=== PATIENT | female | born 1955 | race Caucasian/White ===

== ENCOUNTER 2019-09-07 08:50 | Inpatient (IN) | payer MEDICAID, MEDICARE ==
[~2019-09-07] VITALS: Ht 157.5 cm; Wt 78.9 kg
[~2019-09-07 08:50] MED LIST: AMLO5TAB4 PO; ASPI-1158 PO; LEVO50TA60 PO; LISI-604 PO; SIMV10TA2 PO
[2019-09-07] MEDS ORDERED: MORPHINE SULFATE 4 MG/ML CPJ (NOT FOR IM USE) IV STA (09:08)
[2019-09-07 09:30] LABS: CHLORIDE 104 mEq/L (98-107)
[2019-09-07 09:31] LABS: BASOPHILS % 0.3 % (0.0-2.0); EOSINOPHILS % 2.4 % (0.0-5.0); HEMATOCRIT. 36.9 % (36.0-48.0); HEMOGLOBIN. 12.8 g/dL (12.0-16.0); MEAN CORPUSCULAR HEMOGLOBIN 31.3 pg (28.0-32.0); MEAN CORPUSCULAR VOLUME 90.2 fL (81.0-99.0); MEAN PLATELET VOLUME 7.7 fl (7.4-10.4); MONOCYTES % 6.2 % (2.0-8.0); NEUTROPHILS % 69.1 % (40.0-76.0); PLATELET 273 x1000/uL (130-400); RED BLOOD CELL COUNT 4.09 mill/uL (4.2-5.4); RED CELL DISTRIBUTION WIDTH 13.2 % (11.6-14.6)
[2019-09-07] MEDS ORDERED: HYDRALAZINE 20MG/ML VIAL IV ONE (10:15)
[2019-09-07] MEDS ORDERED: GUAIFENESIN 200MG/10ML SUGAR FREE UDC PO PRN (13:00)
[2019-09-07] MEDS ORDERED: IPRATROPIUM/ALBUTEROL 0.5-3(2.5)MG/3ML NEB NEB PRN (13:00)
[2019-09-07] MEDS ORDERED: CLONIDINE 0.1MG TABLET PO PRN (13:00)
[2019-09-07] MEDS ORDERED: ACETAMINOPHEN 650MG SUPP PR PRN (13:00)
[2019-09-07] MEDS ORDERED: DIPHENHYDRAMINE 50MG/ML VIAL IV PRN (13:00)
[2019-09-07] MEDS ORDERED: DOCUSATE SODIUM 100MG CAPSULE PO PRN (13:00)
[2019-09-07] MEDS ORDERED: NA PHOS,M-B/NA PHOS,DI-BA ENEMA 118ML PR PRN (13:00)
[2019-09-07] MEDS ORDERED: ONDANSETRON HCL 4MG/2ML INJ IV PRN (13:00)
[2019-09-07] MEDS ORDERED: MAGNESIUM/ALUMINUM HYDROXIDE/SIMETHICONE 30ML UDC PO PRN (13:00)
[2019-09-07] MEDS ORDERED: LORAZEPAM 0.5MG TABLET PO PRN (13:00)
[2019-09-07] MEDS ORDERED: ACETAMINOPHEN 325MG TABLET PO PRN (13:00)
[2019-09-07] MEDS ORDERED: HYDROCODONE/ACETAMINOPHEN 5/325MG TABLET PO PRN (13:00)
[2019-09-07] MEDS ORDERED: AZITHROMYCIN 500 MG TABLET PO ONE (13:15)
[2019-09-07 13:43] LABS: CLARITY URINE CLEAR (CLEAR); COLOR URINE YELLOW (YELLOW); KETONES URINE NEGATIVE (NEGATIVE); LEUKOCYTE ESTERASE URINE 2+ (NEGATIVE); NITRITE URINE NEGATIVE (NEGATIVE); OCCULT BLOOD URINE NEGATIVE (NEGATIVE); PH URINE 7.5 (4.5-8.0); PROTEIN URINE TRACE (NEGATIVE); SPECIFIC GRAVITY URINE 1.009 (1.005-1.030); UROBILINOGEN URINE 0.2 E.U./dL (0.2-1.0)
[2019-09-07 14:01] LABS: *AMPHETAMINES SCREEN URINE NEGATIVE (NEGATIVE); *BARBITURATES SCREEN URINE NEGATIVE (NEGATIVE); *BENZODIAZEPINES SCREEN URINE NEGATIVE (NEGATIVE)
[2019-09-07 14:03] LABS: METHADONE URINE SCREEN NEGATIVE (NEGATIVE)
[2019-09-07 14:04] LABS: CANNABINOID URINE SCREEN NEGATIVE (NEGATIVE); OPIATES URINE SCREEN PRESUMTIVE POSITIVE (NEGATIVE)
[2019-09-07 14:11] LABS: *COCAINE SCREEN URINE NEGATIVE (NEGATIVE); PHENCYCLIDINE URINE SCREEN NEGATIVE (NEGATIVE)
[2019-09-07 14:13] LABS: INR 0.9; PROTHROMBIN TIME 9.7 sec (9.6-11.0)
[2019-09-07 14:45] LABS: BASOPHILS % 0.3 % (0.0-2.0); EOSINOPHILS % 0.2 % (0.0-5.0); HEMATOCRIT. 38.4 % (36.0-48.0); HEMOGLOBIN. 13.1 g/dL (12.0-16.0); LYMPHOCYTES % 11.9 % (20.0-50.0); MEAN CORPUSCULAR HEMOGLOBIN 30.6 pg (28.0-32.0); MEAN PLATELET VOLUME 7.8 fl (7.4-10.4); MONOCYTES % 4.3 % (2.0-8.0); NEUTROPHILS % 83.3 % (40.0-76.0); PLATELET 261 x1000/uL (130-400); RED BLOOD CELL COUNT 4.27 mill/uL (4.2-5.4); RED CELL DISTRIBUTION WIDTH 13.5 % (11.6-14.6)
[2019-09-07 15:03] LABS: CREATINE KINASE 58 IU/L (26-192)
[2019-09-07 15:04] LABS: CREATINE KINASE MB FRACTION < 1.0 ng/mL (0.5-3.6)
[2019-09-07 18:33] LABS: CHLORIDE 104 mEq/L (98-107)
[2019-09-07 20:38] VITALS: BP 178/79
[2019-09-07] MEDS ORDERED: AMLODIPINE 2.5MG TABLET PO SCH (21:00)
[2019-09-07] MEDS ORDERED: ENOXAPARIN 40MG/0.4ML SYR SUBCUT SCH (21:00)
[2019-09-07] MEDS ORDERED: ATORVASTATIN CALCIUM 10MG TABLET PO SCH (21:00)
[2019-09-07] MEDS ORDERED: SIMVASTATIN 10 MG PO SCH (21:00)
[2019-09-07 22:00] VITALS: BP 188/79
[2019-09-07] MEDS: AMLODIPINE 5MG TABLET PO SCH (22:31)
[2019-09-08] VITALS: BP 148/52
[2019-09-08 00:13] LABS: CREATINE KINASE 51 IU/L (26-192)
[2019-09-08 00:14] LABS: CREATINE KINASE MB FRACTION < 1.0 ng/mL (0.5-3.6)
[2019-09-08 04:00] VITALS: BP 145/57
[2019-09-08] MEDS ORDERED: LEVOTHYROXINE SODIUM 50MCG TABLET PO SCH (07:40)
[2019-09-08 08:00] VITALS: BP 147/73
[2019-09-08] MEDS ORDERED: AZITHROMYCIN 250 MG TABLET PO SCH (09:00)
[2019-09-08] MEDS ORDERED: LOSARTAN POTASSIUM 50 MG TABLET PO SCH ×2 (09:00→21:00)
[2019-09-08] MEDS ORDERED: ASPIRIN 81MG EC TABLET PO SCH ×2 (09:00)
[2019-09-08] MEDS: AMLODIPINE 5MG TABLET PO SCH ×2 (09:20→20:30)
[2019-09-08 11:30] LABS: BASOPHILS % 0.6 % (0.0-2.0); EOSINOPHILS % 1.6 % (0.0-5.0); HEMATOCRIT. 39.3 % (36.0-48.0); HEMOGLOBIN. 13.2 g/dL (12.0-16.0); LYMPHOCYTES % 26.7 % (20.0-50.0); MEAN CORPUSCULAR HEMOGLOBIN 30.7 pg (28.0-32.0); MEAN CORPUSCULAR VOLUME 91.5 fL (81.0-99.0); MEAN PLATELET VOLUME 9.1 fl (7.4-10.4); MONOCYTES % 5.5 % (2.0-8.0); NEUTROPHILS % 65.6 % (40.0-76.0); PLATELET 236 x1000/uL (130-400); RED CELL DISTRIBUTION WIDTH 13.5 % (11.6-14.6)
[2019-09-08 11:47] LABS: CHLORIDE 104 mEq/L (98-107)
[2019-09-08 11:54] LABS: LDL CHOLESTEROL 94 mg/dL (5-100)
[2019-09-08 11:55] LABS: HDL CHOLESTEROL 72 mg/dL (40-59)
[2019-09-08 11:56] LABS: T4 FREE 0.68 ng/dL (0.76-1.46)
[2019-09-08 12:00] VITALS: BP 135/73
[2019-09-08] MEDS ORDERED: LEVO75TA MT (15:24)
[2019-09-08] MEDS ORDERED: AMLO5TAB4 PO (15:24)
[2019-09-08] MEDS ORDERED: LOSA50TA3 PO (15:24)
[2019-09-08 16:20] VITALS: BP 159/72
[2019-09-08 16:42] VITALS: BP 159/72
== END 2019-09-08 21:07 | disposition home or self-care (01) | DRG 153 ==
LOC: ER 08:50 → 7WST 10:29 → SUPCPDRO 12:59 → ENRESERV 20:13
PROVIDERS: ADMIT Internal Medicine; ATTEND Internal Medicine
DX: J06.9 Acute upper respiratory infection, unspecified (principal); D72.829 Elevated white blood cell count, unspecified; E78.5 Hyperlipidemia, unspecified; I10 Essential (primary) hypertension; R51 Headache; E03.9 Hypothyroidism, unspecified; E66.9 Obesity, unspecified; R73.9 Hyperglycemia, unspecified; R07.9 Chest pain, unspecified; I25.10 Atherosclerotic heart disease of native coronary artery without angina pectoris; R74.0 Nonspecific elevation of levels of transaminase and lactic acid dehydrogenase [LDH]; Z68.31 Body mass index [BMI] 31.0-31.9, adult; Z90.49 Acquired absence of other specified parts of digestive tract; Z98.51 Tubal ligation status; Z79.899 Other long term (current) drug therapy; Z79.82 Long term (current) use of aspirin
CPT/HCPCS: 36415; 71045; 76700; 80053; 80061; 80076; 80305; 81003; 82550; 82553; 83036; 83735; 83880; 84439; 84443; 84484; 85025; 93005; 93306; 93970; 96374; 97162; 99285; J0360; J1650; J2270